=== PATIENT | male | born 1975 | race American Indian/Alaskan Native ===

== ENCOUNTER 2020-12-07 14:46 | Emergency (ER) | payer SELFPAY ==
[2020-12-07 18:15] LABS: Basophils # (Auto) 0.1 K/mm3 (0.0-0.1); Basophils % (Auto) 0.9 % (0.0-1.8); Eosinophils # (Auto) 0.1 K/mm3 (0.0-0.4); Eosinophils % (Auto) 2.1 % (0.0-4.3); Hematocrit 50.8 % (35.5-45.6); Lymphocytes # (Auto) 3.1 K/mm3 (1.2-5.4); Lymphocytes % (Auto) 48.6 % (13.4-35.0); Mean Corpuscular HGB Conc 34 % (32-34); Mean Corpuscular Volume 94 fl (84-94); Monocytes # (Auto) 0.6 K/mm3 (0.0-0.8); Monocytes % (Auto) 9.4 % (0.0-7.3); Platelet Count 227 K/mm3 (140-440); Red Blood Count 5.39 M/mm3 (3.65-5.03); Red Cell Distribution Width 13.5 % (13.2-15.2)
[2020-12-07 18:34] LABS: Alanine Aminotransferase 21 units/L (7-56); Albumin 4.5 g/dL (3.9-5); BUN/Creatinine Ratio 10; Blood Urea Nitrogen 12 mg/dL (9-20); Calcium 9.5 mg/dL (8.4-10.2); Hemolysis Index 29
--- NOTE | 2020-12-07 18:45 | Emergency Department Report ---
ED General Adult HPI - General Chief complaint: Urogenital-Male Stated complaint: LT GROIN PAIN Time Seen by Provider: 12/07/20 17:05 Source: patient Mode of arrival: Ambulatory Limitations: No Limitations - History of Present Illness Initial comments: 45-year-old male patient presents emergency department with complaints of left lower back pain radiating to his left groin and left thigh for approximately 2 weeks. No preceding fall, trauma, or injury. No history of similar symptoms. He has not consulted another provider regarding this pain. Pain is worse with movement. Denies fever, chills, lymphadenopathy, testicular pain/swelling, penile discharge, urinary symptoms, paresthesias, numbness, vomiting, diarrhea. Denies all other complaints at this time. - Related Data Previous Rx's Medication Instructions Recorded Last Taken Type Lidocaine [Lidoderm] 1 each TP BID #20 adh..patch 12/07/20 Unknown Rx Naproxen 500 mg PO BID #20 tablet 12/07/20 Unknown Rx Allergies Allergy/AdvReac Type Severity Reaction Status Date / Time No Known Allergies Allergy Unverified 12/07/20 19:26 ED Review of Systems ROS: Stated complaint: LT GROIN PAIN Other details as noted in HPI Other: GENERAL: Negative for fever, chills, weight change, anorexia, fatigue. ENT: Negative for ear pain, difficulty hearing, sore throat, nasal congestion, epistaxis. CARDIOVASCULAR: Negative for chest pain, palpitations, lower extremity swelling. PULMONARY: Negative for cough, dyspnea, wheezing, orthopnea, cyanosis. GASTROINTESTINAL: Negative for abdominal pain, nausea, vomiting, diarrhea, constipation. MUSCULOSKELETAL: Positive for back pain, groin pain, thigh pain. NEUROLOGICAL: Negative for headache, seizure, syncope, paresthesias, weakness. INTEGUMENTARY: Negative for erythema, rash, diaphoresis, laceration, ecchymosis. HEMATOLOGICAL: Negative for hemoptysis, hematemesis, hematochezia, hematuria. PSYCHIATRIC: Negative for hallucinations, suicidal ideation, homicidal ideation, anxiety, depression. ED Past Medical Hx - Past Medical History Previous Medical History?: No - Surgical History Past Surgical History?: Yes Additional Surgical History: groin hernia repair - Medications Home Medications: Home Medications Medication Instructions Recorded Confirmed Last Taken Type Lidocaine [Lidoderm] 1 each TP BID #20 adh..patch 12/07/20 Unknown Rx Naproxen 500 mg PO BID #20 tablet 12/07/20 Unknown Rx ED Physical Exam - General Limitations: No Limitations - Other Other exam information: General: Awake, appropriately interactive, no acute distress. Neck: Supple. Full range of motion intact. Cardiovascular: Normal peripheral perfusion. Pulmonary: No respiratory distress. Patient is speaking normally without use of accessory muscles. Skin: No apparent rashes or lesions. Neurological: No facial asymmetry. Speech is clear. Follows commands. Patient is alert and oriented. Musculoskeletal: RN machine compositor present. Tenderness to palpation along the left lumbar paraspinal region, left groin, and proximal left thigh. No midline lumbar tenderness. No overlying warmth or discoloration. No lymphadenopathy. No hernia. No testicular swelling. No saddle anesthesia. Ambulatory without assistance. Distal neurovascular and motor/sensory function intact. Psych: Cooperative. Appropriate mood and affect. ED Course Vital Signs 12/07/20 12/07/20 14:50 19:23 Temperature 98.2 F 98.3 F Pulse Rate 81 78 Respiratory 18 18 Rate Blood Pressure 154/106 124/67 O2 Sat by Pulse 96 100 Oximetry ED Medical Decision Making - Lab Data Result diagrams: 12/07/20 17:49 12/07/20 17:49 - Medical Decision Making Differential diagnosis including but not limited to: sprain, strain, inguinal hernia, lumbar radiculopathy, sciatica, disc herniation The patients back/groin pain is not associated with numbness, tingling, or loss of strength. There is no acute urinary incontinence or retention and no bowel incontinence or retention. There is no saddle anesthesia. The patient is afebrile and neurovascularly intact. No clinical evidence for acute nerve compression (such as cauda equine syndrome) or infection (such as epidural abscess). It has been explained to the patient that advanced imaging such as CT or MRI is not indicated at this time but should be considered if symptoms recur or worsen. Discharged home with appropriate prescriptions and instructions to follow up with primary care provider. Strict return precautions provided. Emphasized the importance of outpatient follow-up and specific signs/symptoms that should warrant immediate return to the emergency department. Patient expressed understanding and was given the opportunity to ask questions, all of which were satisfactorily answered prior to discharge home. Critical care attestation.: If time is entered above; I have spent that time in minutes in the direct care of this critically ill patient, excluding procedure time. ED Disposition Clinical Impression: Lumbar back pain with radiculopathy affecting left lower extremity Disposition: DC-01 TO HOME OR SELFCARE Is pt being admited?: No Does the pt Need Aspirin: No Condition: Stable Instructions: Radicular Pain Additional Instructions: Take Tylenol every 4 hours as needed for pain. Take Naprosyn twice daily with food as needed for pain. Apply Lidoderm patches to affected area as needed for pain. Apply heat to affected area as needed for pain. Gradually advance physical activity slowly as tolerated. Follow-up with Dr. Webster, primary care provider, within 1 week. Call tomorrow to schedule an appointment. Return to the emergency department immediately for new or worsening symptoms. Prescriptions: Lidocaine [Lidoderm] 1 each TP BID #20 adh..patch Naproxen 500 mg PO BID #20 tablet Referrals: MONIQUE WEBSTER MD [Staff Physician] - 3-5 Days Time of Disposition: 18:44
[2020-12-07 19:26] VITALS: BP 124/67
== END 2020-12-07 19:27 | disposition home or self-care (01) ==
LOC: ED 14:46
DX: M54.16 Radiculopathy, lumbar region (principal); Z79.899 Other long term (current) drug therapy; Z98.890 Other specified postprocedural states
CPT/HCPCS: 36415; 80053; 83735; 85025; 99283